=== PATIENT | female | born 1955 | race Caucasian/White ===

== ENCOUNTER → 2023-01-19 16:14 | Outpatient (CLI) | payer OTHER, SELFPAY ==
--- NOTE | 2023-01-19 16:16 | DI.RAD.S_ITS ---
PROCEDURE: XR LUMBAR SPINE 2-3V INDICATIONS: Low back pain TECHNIQUE: 3 views of the lumbar spine were acquired. COMPARISON: None. FINDINGS: Surgical clips. Bones: 5 [id number] vertebrae are present. Straightening of the normal lumbar lordosis. No spondylolisthesis. Degenerative changes of the lumbar spine. There is anterior osteophytosis. Multilevel facet arthropathy, worse at L5-S1. There is normal bony alignment. No vertebral body compression fractures. No suspicious bony lesions. Soft tissues: Overlying bowel gas pattern is normal. No suspicious soft tissue calcifications. Right upper quadrant IMPRESSION: Multilevel degenerative changes of the lumbar spine. No acute fractures. Dictated by: Roberto Reece M.D. on 01/19/2023 at 16:30 Approved by: Roberto Reece M.D. on 01/19/2023 at 16:31
== END ==
PROVIDERS: Referring Provider Nurse Practitioner Family; Visit Provider Nurse Practitioner Family
DX: M47.816 Spondylosis without myelopathy or radiculopathy, lumbar region (principal); M47.817 Spondylosis without myelopathy or radiculopathy, lumbosacral region; M54.50 Low back pain, unspecified
CPT/HCPCS: 72100